=== PATIENT | male | born 2000 | race Caucasian/White ===

== ENCOUNTER 2020-01-20 09:06 | Emergency (ER) | payer OTHER ==
[~2020-01-20] VITALS: Ht 175.3 cm; Wt 71.7 kg
[2020-01-20 09:09] VITALS: Ht 175.3 cm; Wt 71.7 kg
[2020-01-20 10:58] VITALS: BP 125/79
== END 2020-01-20 10:58 | disposition home or self-care (01) ==
LOC: ED 09:06
DX: S81.811A Laceration without foreign body, right lower leg, initial encounter (principal); W01.198A Fall on same level from slipping, tripping and stumbling with subsequent striking against other object, initial encounter; Y93.89 Activity, other specified; Y92.89 Other specified places as the place of occurrence of the external cause; Y99.0 Civilian activity done for income or pay

== ENCOUNTER 2020-01-24 13:03 | Emergency (ER) | payer OTHER ==
[~2020-01-24] VITALS: Ht 175.3 cm; Wt 72.6 kg
[2020-01-24 13:06] VITALS: BP 116/82; Ht 175.3 cm; Wt 72.6 kg
== END 2020-01-24 14:50 | disposition home or self-care (01) ==
LOC: ED 13:03
DX: S80.11XA Contusion of right lower leg, initial encounter (principal); W22.8XXA Striking against or struck by other objects, initial encounter; Y93.89 Activity, other specified; Y92.89 Other specified places as the place of occurrence of the external cause; Y99.8 Other external cause status

== ENCOUNTER 2020-06-17 20:34 | Emergency (ER) | payer OTHER, MEDICAID ==
[~2020-06-17] VITALS: Ht 175.3 cm; Wt 78.9 kg
[2020-06-17 20:49] VITALS: Ht 175.3 cm; Wt 78.9 kg
[2020-06-17 21:44] VITALS: BP 134/83
== END 2020-06-17 21:44 | disposition home or self-care (01) ==
LOC: ED 20:34
DX: S06.0X0A Concussion without loss of consciousness, initial encounter (principal); S13.4XXA Sprain of ligaments of cervical spine, initial encounter; M54.5 Low back pain; V48.5XXA Car driver injured in noncollision transport accident in traffic accident, initial encounter; Y93.I9 Activity, other involving external motion; Y92.488 Other paved roadways as the place of occurrence of the external cause; Y99.8 Other external cause status